=== PATIENT | female | born 1995 | race Caucasian/White ===

== ENCOUNTER → 2016-08-12 | Outpatient (REF) | payer OTHER | END | disposition home or self-care (01) | LOC: M SFHCLERA 16:07 | PROVIDERS: ATTEND Nurse Practitioner Family | DX: R30.0 Dysuria (principal) ==

== ENCOUNTER 2016-09-27 00:21 | Emergency (ER) | payer OTHER ==
[2016-09-27 01:21] LABS: MEAN CORPUSCULAR HEMOGLOBIN 29.3 pg (27.0-33.0); MEAN CORPUSCULAR HGB CONC 33.8 g/dl (32.0-36.5); MEAN CORPUSCULAR VOLUME 86.6 fl (80.0-96.0); RED CELL DISTRIBUTION WIDTH 12.2 % (11.5-14.5); WHITE BLOOD COUNT 6.6 K/mm3 (4.0-10.0)
--- NOTE | 2016-09-27 02:40 | REPUSA ---
CLINICAL HISTORY: Bleeding. TECHNIQUE: Endovaginal ultrasound of the pelvis was performed. FINDINGS: The uterus is normal in size measuring 7.2x4.2x5.6 cm. Retroverted uterus. Mean gestational sac diameter is 8.4 mm. This corresponds to an estimated gestation age of 5 weeks an d 3 days. Right ovary measures 3.7x2.2x2.2 cm. There is corpus luteum cyst of the right ovary measuring 1.5 cm. The left ovary measures 2.6x1.6. Impression: Gestational sac is noted. No pole is seen. Right ovarian corpus luteum cyst.
--- NOTE | 2016-09-27 02:46 | EDDOCDS ---
Physician Documentation [facility] Name: Radha Davis Age: 20 yrs Sex: Female : 1995 Arrival Date: 09/27/2016 Time: 00:21 Bed Family 1 Private MD: Disposition: 09/27/16 02:30 Discharged to Home/Self Care. Impression: Threatened . - Condition is Stable. - Medication Reconciliation, Local Pharmacy Hours form. - Follow up: Jaycob Ahn, OB; When: As previously arranged. - Problem is new. - Symptoms are unchanged. Historical: - Allergies: Amoxicillin (Rash); SULFA (SULFONAMIDES) (Rash); - Home Meds: 1. none - PMHx: none; - PSHx: none; - Social history: Smoking status: Patient states was never smoker of tobacco. No barriers to communication noted, The patient speaks fluent Mosotho, Speaks appropriately for age. - Family history: Not pertinent. - : The pt / caregiver states he / she is not on anticoagulants. Home medication list is obtained from the patient. - Exposure Risk Screening:: None identified. 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 4 in. (162.56 cm); 02:42 BP 133 / 73; Pulse 100; Resp 18; Temp 99.2(TE); Pulse Ox 95% on R/A; Pain 0/10; mdr 00:29 Body Mass Index 30.04 (79.38 kg, 162.56 cm) cz MDM: 00:25 Orthostatic VS ordered. cs11 00:25 CBC Ordered. EDMS 00:25 Hcg, Serum Quantitative Ordered. EDMS 00:26 Rh Only Ordered. EDMS 01:09 Ultrasound 1st Trimester Ordered. EDMS 02:27 CBC Reviewed. cs11 02:27 Rh Only Reviewed. cs11 02:27 Hcg, Serum Quantitative Reviewed. cs11 02:27 TRANSVAGINAL US Ordered. EDMS Signatures: Dispatcher [employer] EDSalvatore Dominguez, RN RN cz Chad Bo DO DO cs11 Susy Walton,RN RN cf2 MTDD
--- NOTE | 2016-09-27 02:46 | EDDOCDS ---
Nurse's Notes [facility] Name: Radha Davis Age: 20 yrs Sex: Female : 1995 Arrival Date: 09/27/2016 Time: 00:21 Bed Family 1 Private MD: Diagnosis: Threatened Presentation: 09/27 00:27 Presenting complaint: Patient states: that prior to arrival went to the bathroom and cz after voiding noticed light pink on tissue pt denies cramping. Risk factors: The patient reports no loss of conciousness prior to arrival. This patient has not had a hysterectomy. This patient has not begun menopause. Adult Sepsis Screening: The patient does not have new or worsening altered mentation. Patient's respiratory rate is less than 22. Systolic blood pressure is greater than 100. Patient has a qSOFA score of 0- Negative Sepsis Screen. Suicide/Homicide risk assessment- the patient denies having any suicidal and/or homicidal ideations and does not present with any other emotional, behavioral or mental health complaints. Status: The patient is a dependent. Transition of care: patient was not received from another setting of care. 00:27 Acuity: DARIUS Level 3 cz 00:27 Method Of Arrival: Walkin/Carried/Asstd cz Triage Assessment: 00:29 General: Appears in no apparent distress. Pain: Denies pain. HIV screening NA for this cz visit Offered previously. 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 none - PMHx: none; - PSHx: none; - Social history: Smoking status: Patient states was never smoker of tobacco. No barriers to communication noted, The patient speaks fluent Slovenian, Speaks appropriately for age. - Family history: Not pertinent. - : The pt / caregiver states he / she is not on anticoagulants. Home medication list is obtained from the patient. - Exposure Risk Screening:: None identified. Screenin:47 Screening information is obtained from the patient. Fall risk: No risks identified. cf2 Assistance ADL's: requires no assistance with activities of daily living. Abuse/DV Screen: The patient / caregiver reports he/she is: not in a situation that causes fear, pain or injury. Nutritional screening: No deficits noted. Advance Directives: Further advance directive information is declined. home support is adequate. Assessment: 00:47 General: Appears in no apparent distress, comfortable, Behavior is appropriate for age, cf2 cooperative. Pain: Denies pain. Neurological: No deficits noted. EENT: No deficits noted. Cardiovascular: No deficits noted. Respiratory: No deficits noted. GI: No deficits noted. : patient states "pink while wiping" Reports vaginal bleeding that is scant "pink" when wiping. Derm: No deficits noted. Musculoskeletal: No deficits noted. Injury Description: No known injury. 02:29 Reassessment: Patient appears in no apparent distress at this time. Patient denies pain cf2 at this time. Adult Sepsis Screening: The patient does not have new or worsening altered mentation. Patient's respiratory rate is less than 22. Systolic blood pressure is greater than 100. Patient has a qSOFA score of 0- Negative Sepsis Screen. Vital Signs: 00:29 BP 134 / 82; Pulse 119; Resp 16; Temp 98.7(O); Pulse Ox 99% on R/A; Weight 79.38 kg; cz Height 5 ft. 4 in. (162.56 cm); 02:42 BP 133 / 73; Pulse 100; Resp 18; Temp 99.2(TE); Pulse Ox 95% on R/A; Pain 0/10; mdr 00:29 Body Mass Index 30.04 (79.38 kg, 162.56 cm) cz Vitals: 00:29 Log In Time: September 27, 2016 at 00:23. cz ED Course: 00:23 Patient visited by Pura Biggs Reg. hs2 00:23 Patient moved to Waiting hs2 00:24 Patient moved to Triage 1 cz 00:28 Triage Initiated cz 00:30 Patient moved to 7 cz 00:31 Chad Bo DO is Attending Physician. cs11 00:31 Patient visited by Chad Bo DO. cs11 00:42 Susy Walton,CLAUDETTE is Primary Nurse. cf2 00:42 Patient visited by Susy Walton,CLAUDETTE. cf2 00:47 Patient visited by Susy Walton,CLAUDETTE. cf2 00:47 The patient / caregiver is instructed regarding the plan of care and ED course. Patient cf2 has correct armband on for positive identification. Placed in gown. Bed in low position. Call light in reach. Side rails up X 1. Side rails up X2. Door closed. Noise minimized. Visitors limited. Lights dimmed. Moved to private room. Verbal reassurance given. Warm blanket given. Pillow given. Head of bed elevated. Diet: Patient is NPO. 00:47 No procedures done that require assistance. cf2 01:18 Patient visited by Susy Walton RN. cf2 01:18 CBC Sent. cf2 01:18 Rh Only Sent. cf2 01:18 Hcg, Serum Quantitative Sent. cf2 01:51 Patient visited by Susy Walton RN. cf2 02:28 Patient visited by Susy Walton RN. cf2 02:29 Patient visited by Susy Walton RN. cf2 02:30 Jaycob Ahn OB is Referral Physician. cs11 02:32 Patient visited by Susy Walton RN. cf2 02:43 Patient visited by Barron Messina PCA. mdr 02:44 Patient visited by Susy Walton RN. cf2 02:44 Patient moved to Family 1 aug 02:45 No IV's were initiated during this patient's visit. cf2 Order Results: Lab Order: CBC; SPEC'M 09/27/16 01:10 Test: WHITE BLOOD COUNT; Value: 6.6; Range: 4.0-10.0; Units: K/mm3; Status: F Test: RED BLOOD COUNT; Value: 4.55; Range: 4.00-5.40; Units: M/mm3; Status: F Test: HEMOGLOBIN; Value: 13.3; Range: 12.0-16.0; Units: g/dl; Status: F Test: HEMATOCRIT; Value: 39.4; Range: 36.0-47.0; Units: %; Status: F Test: MEAN CORPUSCULAR VOLUME; Value: 86.6; Range: 80.0-96.0; Units: fl; Status: F Test: MEAN CORPUSCULAR HEMOGLOBIN; Value: 29.3; Range: 27.0-33.0; Units: pg; Status: F Test: MEAN CORPUSCULAR HGB CONC; Value: 33.8; Range: 32.0-36.5; Units: g/dl; Status: F Test: RED CELL DISTRIBUTION WIDTH; Value: 12.2; Range: 11.5-14.5; Units: %; Status: F Test: PLATELET COUNT, AUTOMATED; Value: 318; Range: 150-450; Units: k/mm3; Status: F Lab Order: Rh Only; SPEC'M 09/27/16 01:10 Test: RH; Value: POSITIVE; Status: F Lab Order: Hcg, Serum Quantitative; SPEC'M 09/27/16 01:10 Test: HCG, SERUM QUANTITATIVE; Value: 2276; Units: MIU/ML; Status: F Test Note: ; GESTATIONAL AGE APPROXIMATE HCG RANGE (MIU/ML) 0.2-1 WEEK 5-50 1-2 WEEKS 50-500 2-3 WEEKS 100-5,000 3-4 WEEKS 500-10,000 4-5 WEEKS 1,000-50,000 5-6 WEEKS 10,000-100,000 6-8 WEEKS 15,000-200,000 2-3 MONTHS 10,000-100,000 NON FEMALES LESS THAN 3.0 Patient samples may contain human heterophilic antibodies that could react with immunoassays to give falsely elevated or depressed results. This assay has been designed to minimize interference from heterophilic antibodies. Elevated hCG levels have also been associated with trophoblastic disease and nontrophoblastic neoplasms. The possibility of having these diseases should be considered before a diagnosis of is made. This test is not intended for use as a surrogate marker for aiding in the diagnosis or monitoring the treatment of cancer patients. [employer] methodology. Outcome: 02:30 Discharge ordered by Provider. cs11 02:44 Discharge Assessment: Patient awake, alert and oriented x 3. No cognitive and/or cf2 functional deficits noted. Patient verbalized understanding of disposition instructions. Patient awake and alert. Oriented to person, place and time. patient administered narcotics - no. The following High Risk Discharge criteria are identified: None. Discharged to home ambulatory. Condition: good Condition: stable. Discharge instructions given to patient, Instructed on discharge instructions, follow up and referral plans. Ultrasound Study completed. Property :Personal belongings accompany Pt. 02:45 Patient left the ED. cf2 Signatures: Kenya Decker RN RN Salvatore Munoz RN RN cz Schiff, Craig, DO DO cs11 Barron Messina, DUARTE REPEATER CHIEF mdr Pura Biggs, Reg Reg hs2 Susy Walton,RN RN cf2 MTDD
--- NOTE | 2016-09-29 03:46 | EDDOCDS ---
Physician Documentation [facility] Name: Radha Davis Age: 20 yrs Sex: Female : 1995 Arrival Date: 09/27/2016 Time: 00:21 Bed Family 1 Private MD: Disposition: 09/27/16 02:30 Discharged to Home/Self Care. Impression: Threatened . - Condition is Stable. - Medication Reconciliation, Local Pharmacy Hours form. - Follow up: Jaycob Ahn, OB; When: As previously arranged. - Problem is new. - Symptoms are unchanged. Historical: - Allergies: Amoxicillin (Rash); SULFA (SULFONAMIDES) (Rash); - Home Meds: 1. none - PMHx: none; - PSHx: none; - Social history: Smoking status: Patient states was never smoker of tobacco. No barriers to communication noted, The patient speaks fluent Serbian, Speaks appropriately for age. - Family history: Not pertinent. - : The pt / caregiver states he / she is not on anticoagulants. Home medication list is obtained from the patient. - Exposure Risk Screening:: None identified. 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 4 in. (162.56 cm); 02:42 BP 133 / 73; Pulse 100; Resp 18; Temp 99.2(TE); Pulse Ox 95% on R/A; Pain 0/10; mdr 00:29 Body Mass Index 30.04 (79.38 kg, 162.56 cm) cz MDM: 00:25 Orthostatic VS ordered. cs11 00:25 CBC Ordered. EDMS 00:25 Hcg, Serum Quantitative Ordered. EDMS 00:26 Rh Only Ordered. EDMS 01:09 Ultrasound 1st Trimester Ordered. EDMS 02:27 CBC Reviewed. cs11 02:27 Rh Only Reviewed. cs11 02:27 Hcg, Serum Quantitative Reviewed. cs11 02:27 TRANSVAGINAL US Ordered. EDMS 02:48 [facility] [place] Payment Agreement was scanned into [employer] and attached to record. hs2 09:45 Financial registration complete. mm15 20:09 T-Sheet-- Draft Copy was scanned into [employer] and attached to record. klr Signatures: Dispatcher [employer] Salvatore Chandra, RN RN Chad Roberts, DO cs11 McguireShahnaz sidhualex mm15 Pura Biggs, Reg Reg hs2 Caroline Chicas Christina, RN RN cf2 The chart was reviewed and I authenticate all verbal orders and agree with the evaluation and treatment provided.Attachments: 02:48 [facility] Payment Agreement hs2 20:09 T-Sheet-- Draft Copy klr Chart Complete MTDD
--- NOTE | 2016-09-29 03:47 | EDDOCDS ---
Nurse's Notes [facility] Name: Radha Davis Age: 20 yrs Sex: Female : 1995 Arrival Date: 09/27/2016 Time: 00:21 Bed Family 1 Private MD: Diagnosis: Threatened Presentation: 09/27 00:27 Presenting complaint: Patient states: that prior to arrival went to the bathroom and cz after voiding noticed light pink on tissue pt denies cramping. Risk factors: The patient reports no loss of conciousness prior to arrival. This patient has not had a hysterectomy. This patient has not begun menopause. Adult Sepsis Screening: The patient does not have new or worsening altered mentation. Patient's respiratory rate is less than 22. Systolic blood pressure is greater than 100. Patient has a qSOFA score of 0- Negative Sepsis Screen. Suicide/Homicide risk assessment- the patient denies having any suicidal and/or homicidal ideations and does not present with any other emotional, behavioral or mental health complaints. Status: The patient is a dependent. Transition of care: patient was not received from another setting of care. 00:27 Acuity: DARIUS Level 3 cz 00:27 Method Of Arrival: Walkin/Carried/Asstd cz Triage Assessment: 00:29 General: Appears in no apparent distress. Pain: Denies pain. HIV screening NA for this cz visit Offered previously. 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 none - PMHx: none; - PSHx: none; - Social history: Smoking status: Patient states was never smoker of tobacco. No barriers to communication noted, The patient speaks fluent Serbian, Speaks appropriately for age. - Family history: Not pertinent. - : The pt / caregiver states he / she is not on anticoagulants. Home medication list is obtained from the patient. - Exposure Risk Screening:: None identified. Screenin:47 Screening information is obtained from the patient. Fall risk: No risks identified. cf2 Assistance ADL's: requires no assistance with activities of daily living. Abuse/DV Screen: The patient / caregiver reports he/she is: not in a situation that causes fear, pain or injury. Nutritional screening: No deficits noted. Advance Directives: Further advance directive information is declined. home support is adequate. Assessment: 00:47 General: Appears in no apparent distress, comfortable, Behavior is appropriate for age, cf2 cooperative. Pain: Denies pain. Neurological: No deficits noted. EENT: No deficits noted. Cardiovascular: No deficits noted. Respiratory: No deficits noted. GI: No deficits noted. : patient states "pink while wiping" Reports vaginal bleeding that is scant "pink" when wiping. Derm: No deficits noted. Musculoskeletal: No deficits noted. Injury Description: No known injury. 02:29 Reassessment: Patient appears in no apparent distress at this time. Patient denies pain cf2 at this time. Adult Sepsis Screening: The patient does not have new or worsening altered mentation. Patient's respiratory rate is less than 22. Systolic blood pressure is greater than 100. Patient has a qSOFA score of 0- Negative Sepsis Screen. Vital Signs: 00:29 BP 134 / 82; Pulse 119; Resp 16; Temp 98.7(O); Pulse Ox 99% on R/A; Weight 79.38 kg; cz Height 5 ft. 4 in. (162.56 cm); 02:42 BP 133 / 73; Pulse 100; Resp 18; Temp 99.2(TE); Pulse Ox 95% on R/A; Pain 0/10; mdr 00:29 Body Mass Index 30.04 (79.38 kg, 162.56 cm) cz Vitals: 00:29 Log In Time: September 27, 2016 at 00:23. cz ED Course: 00:23 Patient visited by Pura Biggs Reg. hs2 00:23 Patient moved to Waiting hs2 00:24 Patient moved to Triage 1 cz 00:28 Triage Initiated cz 00:30 Patient moved to 7 cz 00:31 Chad Bo DO is Attending Physician. cs11 00:31 Patient visited by Chad Bo DO. cs11 00:42 Susy Walton,CLAUDETTE is Primary Nurse. cf2 00:42 Patient visited by Susy Walton,CLAUDETTE. cf2 00:47 Patient visited by Susy Walton,CLAUDETTE. cf2 00:47 The patient / caregiver is instructed regarding the plan of care and ED course. Patient cf2 has correct armband on for positive identification. Placed in gown. Bed in low position. Call light in reach. Side rails up X 1. Side rails up X2. Door closed. Noise minimized. Visitors limited. Lights dimmed. Moved to private room. Verbal reassurance given. Warm blanket given. Pillow given. Head of bed elevated. Diet: Patient is NPO. 00:47 No procedures done that require assistance. cf2 01:18 Patient visited by Susy Walton RN. cf2 01:18 CBC Sent. cf2 01:18 Rh Only Sent. cf2 01:18 Hcg, Serum Quantitative Sent. cf2 01:51 Patient visited by Susy Walton RN. cf2 02:28 Patient visited by Susy Walton RN. cf2 02:29 Patient visited by Susy Walton RN. cf2 02:30 Jaycob Ahn, OB is Referral Physician. cs11 02:32 Patient visited by Susy Walton RN. cf2 02:43 Patient visited by Barron Messina PCA. mdr 02:44 Patient visited by Susy Walton,CLAUDETTE. cf2 02:44 Patient moved to Family 1 aug 02:45 No IV's were initiated during this patient's visit. cf2 02:48 [facility] [place] Payment Agreement was scanned into [employer] and attached to record. hs2 03:19 Ultrasound 1st Trimester Returned. EDMS 20:09 T-Sheet-- Draft Copy was scanned into [employer] and attached to record. klr Order Results: Lab Order: CBC; SPEC'M 09/27/16 01:10 Test: WHITE BLOOD COUNT; Value: 6.6; Range: 4.0-10.0; Units: K/mm3; Status: F Test: RED BLOOD COUNT; Value: 4.55; Range: 4.00-5.40; Units: M/mm3; Status: F Test: HEMOGLOBIN; Value: 13.3; Range: 12.0-16.0; Units: g/dl; Status: F Test: HEMATOCRIT; Value: 39.4; Range: 36.0-47.0; Units: %; Status: F Test: MEAN CORPUSCULAR VOLUME; Value: 86.6; Range: 80.0-96.0; Units: fl; Status: F Test: MEAN CORPUSCULAR HEMOGLOBIN; Value: 29.3; Range: 27.0-33.0; Units: pg; Status: F Test: MEAN CORPUSCULAR HGB CONC; Value: 33.8; Range: 32.0-36.5; Units: g/dl; Status: F Test: RED CELL DISTRIBUTION WIDTH; Value: 12.2; Range: 11.5-14.5; Units: %; Status: F Test: PLATELET COUNT, AUTOMATED; Value: 318; Range: 150-450; Units: k/mm3; Status: F Lab Order: Rh Only; SPEC'09/27/16 01:10 Test: RH; Value: POSITIVE; Status: F Lab Order: Hcg, Serum Quantitative; SPEC09/27/16 01:10 Test: HCG, SERUM QUANTITATIVE; Value: 2276; Units: MIU/ML; Status: F Test Note: ; GESTATIONAL AGE APPROXIMATE HCG RANGE (MIU/ML) 0.2-1 WEEK 5-50 1-2 WEEKS 50-500 2-3 WEEKS 100-5,000 3-4 WEEKS 500-10,000 4-5 WEEKS 1,000-50,000 5-6 WEEKS 10,000-100,000 6-8 WEEKS 15,000-200,000 2-3 MONTHS 10,000-100,000 NON FEMALES LESS THAN 3.0 Patient samples may contain human heterophilic antibodies that could react with immunoassays to give falsely elevated or depressed results. This assay has been designed to minimize interference from heterophilic antibodies. Elevated hCG levels have also been associated with trophoblastic disease and nontrophoblastic neoplasms. The possibility of having these diseases should be considered before a diagnosis of is made. This test is not intended for use as a surrogate marker for aiding in the diagnosis or monitoring the treatment of cancer patients. Siemens SMCpros methodology. Radiology Order: Ultrasound 1st Trimester Test: Ultrasound 1st Trimester REASON FOR EXAMINATION: Bleeding; ; CLINICAL HISTORY: Bleeding.; TECHNIQUE: Endovaginal ultrasound of the pelvis was performed.; FINDINGS:; The uterus is normal in size measuring 7.2x4.2x5.6 cm.; Retroverted uterus.; Mean gestational sac diameter is 8.4 mm. This corresponds to an estimated gestation age of 5 weeks an; d 3 days.; Right ovary measures 3.7x2.2x2.2 cm. There is corpus luteum cyst of the right ovary measuring 1.5 cm.; ; The left ovary measures 2.6x1.6.; Impression:; Gestational sac is noted.; No pole is seen.; Right ovarian corpus luteum cyst.; ; ; Outcome: 02:30 Discharge ordered by Provider. cs11 02:44 Discharge Assessment: Patient awake, alert and oriented x 3. No cognitive and/or cf2 functional deficits noted. Patient verbalized understanding of disposition instructions. Patient awake and alert. Oriented to person, place and time. patient administered narcotics - no. The following High Risk Discharge criteria are identified: None. Discharged to home ambulatory. Condition: good Condition: stable. Discharge instructions given to patient, Instructed on discharge instructions, follow up and referral plans. Ultrasound Study completed. Property :Personal belongings accompany Pt. 02:45 Patient left the ED. cf2 Signatures: Dispatcher Med[employer] EDMS Kenya Decker RN Salvatore Denise, RN Chad Tam, DO cs11 Barron Messina, DUARTE AUTOMOBILE LEASING SUPERVISOR Pura Glaser, Reg Reg hs2 Caroline Chicas Christina,RN RN cf2 Chart Complete MTDD
--- NOTE | 2016-09-29 03:47 | EDDOCDS ---
Physician Documentation [facility] Name: Radha Davis Age: 20 yrs Sex: Female : 1995 Arrival Date: 09/27/2016 Time: 00:21 Bed Family 1 Private MD: Disposition: 09/27/16 02:30 Discharged to Home/Self Care. Impression: Threatened . - Condition is Stable. - Medication Reconciliation, Local Pharmacy Hours form. - Follow up: Jaycob Ahn, OB; When: As previously arranged. - Problem is new. - Symptoms are unchanged. Historical: - Allergies: Amoxicillin (Rash); SULFA (SULFONAMIDES) (Rash); - Home Meds: 1. none - PMHx: none; - PSHx: none; - Social history: Smoking status: Patient states was never smoker of tobacco. No barriers to communication noted, The patient speaks fluent Sammarinese, Speaks appropriately for age. - Family history: Not pertinent. - : The pt / caregiver states he / she is not on anticoagulants. Home medication list is obtained from the patient. - Exposure Risk Screening:: None identified. 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 4 in. (162.56 cm); 02:42 BP 133 / 73; Pulse 100; Resp 18; Temp 99.2(TE); Pulse Ox 95% on R/A; Pain 0/10; mdr 00:29 Body Mass Index 30.04 (79.38 kg, 162.56 cm) cz MDM: 00:25 Orthostatic VS ordered. cs11 00:25 CBC Ordered. EDMS 00:25 Hcg, Serum Quantitative Ordered. EDMS 00:26 Rh Only Ordered. EDMS 01:09 Ultrasound 1st Trimester Ordered. EDMS 02:27 CBC Reviewed. cs11 02:27 Rh Only Reviewed. cs11 02:27 Hcg, Serum Quantitative Reviewed. cs11 02:27 TRANSVAGINAL US Ordered. EDMS 02:48 [facility] [place] was scanned into [employer] and attached to record. hs2 09:45 Financial registration complete. mm15 20:09 T-Sheet-- Draft Copy was scanned into [employer] and attached to record. klr Signatures: Dispatcher [employer] Salvatore Chandra, RN RN Chad Roberts, DO cs11 McguireShahnaz sidhualex mm15 Pura Biggs, Reg Reg hs2 Caroline Chicas Christina, RN RN cf2 The chart was reviewed and I authenticate all verbal orders and agree with the evaluation and treatment provided.Attachments: 02:48 [facility] Payment Agreement hs2 20:09 T-Sheet-- Draft Copy klr Chart Complete MTDD
== END 2016-09-27 02:45 | disposition home or self-care (01) ==
LOC: M ED 00:21
DX: O20.0 Threatened abortion (principal); Z3A.01 Less than 8 weeks gestation of pregnancy; Z88.0 Allergy status to penicillin; Z88.2 Allergy status to sulfonamides

== ENCOUNTER 2016-09-28 19:00 | Emergency (ER) | payer OTHER ==
[2016-09-28 19:59] LABS: BASO % 0.3 % (0.0-1.0); EOS # 0.2 K/mm3 (0.0-0.50); EOS % 1.9 % (0.0-3.0); LARGE UNSTAINED CELL # 0.1 K/mm3 (0.0-0.4); LARGE UNSTAINED CELL % 1.3 % (0.0-4.0); LYMPH # 2.4 K/mm3 (1.5-6.5); LYMPH % 24.5 % (24.0-44.0); MEAN CORPUSCULAR HEMOGLOBIN 29.7 pg (27.0-33.0); MEAN CORPUSCULAR VOLUME 87.3 fl (80.0-96.0); MONO # 0.5 K/mm3 (0.0-0.8); MONO % 5.7 % (0.0-5.0); NEUTROPHILS # 6.3 K/mm3 (1.8-7.7); NEUTROPHILS % 66.4 % (36.0-66.0); PLATELET COUNT, AUTOMATED 322 k/mm3 (150-450); RED CELL DISTRIBUTION WIDTH 12.4 % (11.5-14.5); WHITE BLOOD COUNT 9.5 K/mm3 (4.0-10.0)
[2016-09-28 20:31] LABS: ANION GAP 7 MEQ/L (8-16); BLOOD UREA NITROGEN 6 MG/DL (7-18); CALCIUM LEVEL 8.6 MG/DL (8.5-10.1); CARBON DIOXIDE LEVEL 28 MEQ/L (21-32); CHLORIDE LEVEL 106 MEQ/L (98-107); CREATININE FOR GFR 0.66 MG/DL (0.55-1.02); GLOMERULAR FILTRATION RATE > 60.0 (>60); GLUCOSE, FASTING 82 MG/DL (70-105); HCG, SERUM QUANTITATIVE 1899 MIU/ML; SODIUM LEVEL 141 MEQ/L (136-145)
--- NOTE | 2016-09-28 22:24 | EDDOCDS ---
Nurse's Notes [facility] Name: Radha Davis Age: 20 yrs Sex: Female : 1995 Arrival Date: 09/28/2016 Time: 19:00 Bed I4 / M4 Private MD: Haresh Elizabeth Diagnosis: Spontaneous Presentation: 09/28 19:04 Presenting complaint: Patient states: Was seen here on for vaginal bleeding mcp and 4-5 weeks . Today bleeding with clots increased with cramping. Risk factors: The patient reports no loss of conciousness prior to arrival. This patient has not had a hysterectomy. This patient has not begun menopause. Adult Sepsis Screening: The patient does not have new or worsening altered mentation. Patient's respiratory rate is less than 22. Systolic blood pressure is greater than 100. Patient has a qSOFA score of 0- Negative Sepsis Screen. Suicide/Homicide risk assessment- the patient denies having any suicidal and/or homicidal ideations and does not present with any other emotional, behavioral or mental health complaints. Status: The patient is a dependent. Transition of care: patient was not received from another setting of care. 19:04 Acuity: DARIUS Level 3 mcp 19:04 Method Of Arrival: Walkin/Carried/Asstd [facility] Triage Assessment: 19:06 General: Appears in no apparent distress, Behavior is cooperative. Pain: Location: mcp right lower quadrant and left lower quadrant Pain currently is 2 out of 10 on a pain scale. Quality of pain is described as crampy. HIV screening NA for this visit Offered previously. Neurological: No deficits noted. Respiratory: No deficits noted. : Reports vaginal bleeding that is with clots moderate flow. Derm: Skin is pink, warm & dry. 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 none - PMHx: none; - PSHx: none; - Social history: Smoking status: Patient states was never smoker of tobacco. No barriers to communication noted, The patient speaks fluent Turkmen. - Family history: Not pertinent. - : The pt / caregiver states he / she is not on anticoagulants. Home medication list is obtained from the patient. - Exposure Risk Screening:: None identified. Screenin:40 Screening information is obtained from the patient. Fall risk: No risks identified. ko2 Assistance ADL's: requires no assistance with activities of daily living. Abuse/DV Screen: The patient / caregiver reports he/she is: not in a situation that causes fear, pain or injury. Nutritional screening: No deficits noted. Advance Directives: Currently, there is no health care proxy. There is no active DNR order. There is no living will. There is no Power of Show Card Letterer. home support is adequate. Assessment: 19:39 General: Appears in no apparent distress, Behavior is appropriate for age, cooperative. ko2 Pain: Location: abdomen Pain currently is 2 out of 10 on a pain scale. Neurological: Level of Consciousness is awake, alert, Oriented to person, place, time. Respiratory: Airway is patent Respiratory effort is even, unlabored, Respiratory pattern is regular, symmetrical. : Urine is blood tinged. Derm: Skin is normal. Musculoskeletal: Range of motion intact in all extremities. 21:08 General: Appears in no apparent distress, Behavior is appropriate for age, cooperative. ko2 Pain: Location: abdomen Pain currently is 3 out of 10 on a pain scale. Neurological: Level of Consciousness is awake, alert, Oriented to person, place, time. Respiratory: Airway is patent Respiratory effort is even, unlabored, Respiratory pattern is regular, symmetrical. Derm: Skin is normal. Musculoskeletal: Range of motion intact in all extremities. 22:20 General: Appears in no apparent distress, Behavior is appropriate for age, cooperative. ko2 Pain: Location: abdomen Pain currently is 3 out of 10 on a pain scale. Neurological: Level of Consciousness is awake, alert. Respiratory: Airway is patent Respiratory effort is even, unlabored, Respiratory pattern is regular, symmetrical. Derm: Skin is normal. Vital Signs: 19:01 BP 127 / 75; Pulse 93; Resp 19; Temp 98.4(O); Pulse Ox 98% on R/A; Weight 79.38 kg (R); lr2 Height 5 ft. 4 in. (162.56 cm) (R); Pain 2/10; 22:11 BP 104 / 64; Pulse 18; Resp 18; Temp 99.9; Pulse Ox 99% ; Pain 3/10; ajs 19:01 Body Mass Index 30.04 (79.38 kg, 162.56 cm) lr2 Vitals: 19:03 Log In Time: September 28, 2016 at 19:00. RN notified that patient meets Red Flag lr2 criteria. ED Course: 19:00 Patient visited by Jenny Pritchett. lr2 19:00 Patient moved to Waiting lr2 19:03 [place] [facility] [place] Phys[place]. lr2 19:03 Patient moved to Pre RCE lr2 19:06 Triage Initiated [facility] 19:07 Patient visited by Luisa Villa RN. [facility] 19:07 [facility] ck[facility] 19:07 Chad Bo DO is Attending Physician. ck7 19:07 Patient visited by Juan Diego Denise RPA-C. ck7 19:07 Patient moved to Triage 3 [facility] 19:22 Patient moved to I4 / M4 kmg1 19:38 Urine Culture Sent. ko2 19:38 UA Sent. ko2 19:39 Type & Screen Sent. ko2 19:39 Hcg, Serum Quantitative Sent. ko2 19:39 MED Profile Sent. ko2 19:39 CBC with Diff Sent. ko2 19:40 Patient visited by Modesta Benítez RN. ko2 19:40 The patient / caregiver is instructed regarding the plan of care and ED course. ko2 19:40 Inserted saline lock: 20 gauge in right antecubital area and blood collected. The ko2 patient tolerated the procedure well. 19:49 [place] [place] was [place] into [employer] and attached to record. ks16 20:39 Patient visited by Juan Diego Denise RPA-C. ck7 21:08 Patient visited by Modesta Benítez RN. ko2 21:09 Patient visited by Modesta Benítez RN. ko2 21:56 Patient visited by Juan Diego Denise RPA-C. ck7 22:03 Jaycob Ahn OB is Referral Physician. ck7 22:11 Patient visited by Brenda Joaquin. ajs 22:21 Discontinued lock intact, bleeding controlled, pressure dressing applied, No ko2 redness/swelling at site. No procedures done that require assistance. Administered Medications: 19:40 Drug: NS 0.9% 1000 ml Route: IV; Rate: bolus; Site: right antecubital; [facility] 22:23 Follow up: IV Status: Completed infusion; IV Intake: 1000ml ko2 Intake: 22:23 IV: 1000.00ml; Total: 1000.00ml. ko2 Order Results: Lab Order: CBC with Diff; SPEC'M 09/28/16 19:35 Test: WHITE BLOOD COUNT; Value: 9.5; Range: 4.0-10.0; Units: K/mm3; Status: F Test: RED BLOOD COUNT; Value: 4.46; Range: 4.00-5.40; Units: M/mm3; Status: F Test: HEMOGLOBIN; Value: 13.2; Range: 12.0-16.0; Units: g/dl; Status: F Test: HEMATOCRIT; Value: 38.9; Range: 36.0-47.0; Units: %; Status: F Test: MEAN CORPUSCULAR VOLUME; Value: 87.3; Range: 80.0-96.0; Units: fl; Status: F Test: MEAN CORPUSCULAR HEMOGLOBIN; Value: 29.7; Range: 27.0-33.0; Units: pg; Status: F Test: MEAN CORPUSCULAR HGB CONC; Value: 34.0; Range: 32.0-36.5; Units: g/dl; Status: F Test: RED CELL DISTRIBUTION WIDTH; Value: 12.4; Range: 11.5-14.5; Units: %; Status: F Test: PLATELET COUNT, AUTOMATED; Value: 322; Range: 150-450; Units: k/mm3; Status: F Test: NEUTROPHILS %; Value: 66.4; Range: 36.0-66.0; Abnormal: Above high normal; Units: %; Status: F Test: LYMPH %; Value: 24.5; Range: 24.0-44.0; Units: %; Status: F Test: MONO %; Value: 5.7; Range: 0.0-5.0; Abnormal: Above high normal; Units: %; Status: F Test: EOS %; Value: 1.9; Range: 0.0-3.0; Units: %; Status: F Test: BASO %; Value: 0.3; Range: 0.0-1.0; Units: %; Status: F Test: LARGE UNSTAINED CELL %; Value: 1.3; Range: 0.0-4.0; Units: %; Status: F Test: NEUTROPHILS #; Value: 6.3; Range: 1.8-7.7; Units: K/mm3; Status: F Test: LYMPH #; Value: 2.4; Range: 1.5-6.5; Units: K/mm3; Status: F Test: MONO #; Value: 0.5; Range: 0.0-0.8; Units: K/mm3; Status: F Test: EOS #; Value: 0.2; Range: 0.0-0.50; Units: K/mm3; Status: F Test: BASO #; Value: 0.0; Range: 0.0-0.2; Units: K/mm3; Status: F Test: LARGE UNSTAINED CELL #; Value: 0.1; Range: 0.0-0.4; Units: K/mm3; Status: F Lab Order: [facility] Profile; [facility]'M 09/28/16 19:35 Test: GLUCOSE, FASTING; Value: 82; Range: 70-105; Units: MG/DL; Status: F Test: BLOOD UREA NITROGEN; Value: 6; Range: 7-18; Abnormal: Below low normal; Units: MG/DL; Status: F Test: CREATININE FOR GFR; Value: 0.66; Range: 0.55-1.02; Units: MG/DL; Status: F Test: GLOMERULAR FILTRATION RATE; Value: > 60.0; Range: >60; Status: F Test: SODIUM LEVEL; Value: 141; Range: 136-145; Units: MEQ/L; Status: F Test: POTASSIUM SERUM; Value: 4.0; Range: 3.5-5.1; Units: MEQ/L; Status: F Test: CHLORIDE LEVEL; Value: 106; Range: 98-107; Units: MEQ/L; Status: F Test: CARBON DIOXIDE LEVEL; Value: 28; Range: 21-32; Units: MEQ/L; Status: F Test: ANION GAP; Value: 7; Range: 8-16; Abnormal: Below low normal; Units: MEQ/L; Status: F Test: CALCIUM LEVEL; Value: 8.6; Range: 8.5-10.1; Units: MG/DL; Status: F Test Note: ; Units are mL/min/1.73 m2 Chronic Kidney Disease Staging per NKF: Stage I & II GFR >=60 Normal to Mildly Decreased Stage III GFR 30-59 Moderately Decreased Stage IV GFR 15-29 Severely Decreased Stage V GFR <15 Very Little GFR Left ESRD GFR <15 on IRRIGATIONIST DESIGNER Lab Order: Hcg, Serum Quantitative; SPEC'M 09/28/16 19:35 Test: HCG, SERUM QUANTITATIVE; Value: 1899; Units: MIU/ML; Status: F Test Note: ; GESTATIONAL AGE APPROXIMATE HCG RANGE (MIU/ML) 0.2-1 WEEK 5-50 1-2 WEEKS 50-500 2-3 WEEKS 100-5,000 3-4 WEEKS 500-10,000 4-5 WEEKS 1,000-50,000 5-6 WEEKS 10,000-100,000 6-8 WEEKS 15,000-200,000 2-3 MONTHS 10,000-100,000 NON FEMALES LESS THAN 3.0 Patient samples may contain human heterophilic antibodies that could react with immunoassays to give falsely elevated or depressed results. This assay has been designed to minimize interference from heterophilic antibodies. Elevated hCG levels have also been associated with trophoblastic disease and nontrophoblastic neoplasms. The possibility of having these diseases should be considered before a diagnosis of is made. This test is not intended for use as a surrogate marker for aiding in the diagnosis or monitoring the treatment of cancer patients. [employer] methodology. Lab Order: Type & Screen; [facility]09/28/16 19:35 Test: BLOOD TYPE; Value: O POS; Status: F Test: AB SCREEN (INDIRECT [place])VIS; Value: NEGATIVE; Status: F Lab Order: UA; SPEC'M 09/28/16 19:35 Test: APPEARANCE, URINE; Value: CLOUDY; Range: CLEAR; Abnormal: Above high normal; Status: F Test: COLOR, URINE; Value: YELLOW; Range: YELLOW; Status: F Test: PH,URINE; Value: 5.0; Range: 5.0-9.0; Units: UNITS; Status: F Test: SPECIFIC GRAVITY URINE AUTO; Value: 1.025; Range: 1.002-1.035; Status: F Test: PROTEIN, URINE AUTO; Value: 2+; Range: NEGATIVE; Abnormal: Above high normal; Units: mg/dL; Status: F Test: GLUCOSE, URINE (UA) AUTO; Value: NEGATIVE; Range: NEGATIVE; Units: mg/dL; Status: F Test: KETONE, URINE AUTO; Value: NEGATIVE; Range: NEGATIVE; Units: mg/dL; Status: F Test: UROBILINOGEN, URINE AUTO; Value: 0.2; Range: 0.0-2.0; Units: mg/dL; Status: F Test: BILIRUBIN, URINE AUTO; Value: NEGATIVE; Range: NEGATIVE; Status: F Test: NITRITE, URINE AUTO; Value: NEGATIVE; Range: NEGATIVE; Status: F Test: LEUKOCYTE ESTERASE, URINE AUTO; Value: 1+; Range: NEGATIVE; Abnormal: Above high normal; Status: F Test: BLOOD, URINE BLOOD; Value: 3+; Range: NEGATIVE; Abnormal: Above high normal; Status: F Test: WBC, URINE AUTO; Value: 26; Range: 0-3; Abnormal: Above high normal; Units: /HPF; Status: F Test: RBC, URINE AUTO; Value: TNTC; Range: 0-3; Abnormal: Above high normal; Units: /HPF; Status: F Test: BACTERIA, URINE AUTO; Value: 1+; Range: NEGATIVE; Abnormal: Above high normal; Status: F Test: SQUAMOUS EPITHELIAL CELL UR AU; Value: 5; Range: 0-6; Units: /HPF; Status: F Test: TRANSITIONAL EPITHELIAL AUTO; Value: <1; Range: NONE; Units: /HPF; Status: F Test: MUCUS, URINE; Value: MODERATE; Range: NEGATIVE; Status: F Test: HYALINE CAST, URINE AUTO; Value: 0; Range: 0-1; Units: /LPF; Status: F Outcome: 22:04 Discharge ordered by Provider. ck7 22:21 Discharge Assessment: Patient awake, alert and oriented x 3. No cognitive and/or ko2 functional deficits noted. Patient verbalized understanding of disposition instructions. patient administered narcotics - no. The following High Risk Discharge criteria are identified: None. Discharged to home ambulatory. Condition: stable. Discharge instructions given to patient, Instructed on discharge instructions, follow up and referral plans. medication usage, Demonstrated understanding of instructions, Pt was receptive of discharge instructions/ teaching. Ultrasound Study completed. Property sent home with patient. 22:23 Patient left the ED. ko2 Signatures: Belle Weathers, RN RN kmg1 Luisa Villa RN RN Brenda Abdul JaneRN RN chary Juan Diego Denise, RPA-C [id number] Modesta Benítez RN RN janette2 Megha Simmons, Reg Reg ks16 Jenny Pritchett lr2 MTDD
--- NOTE | 2016-09-28 22:24 | EDDOCDS ---
Physician Documentation [facility] Name: Radha Davis Age: 20 yrs Sex: Female : 1995 Arrival Date: 09/28/2016 Time: 19:00 Bed I4 / M4 Private MD: [place] [facility] [place]position: 09/28/16 22:04 Discharged to Home/Self Care. Impression: Spontaneous . - Condition is Stable. - Discharge Instructions: Miscarriage. - Medication Reconciliation, Local Pharmacy Hours form. - Follow up: Jaycob Ahn, OB; When: 1 - 2 days; Reason: Recheck today's complaints, Continuance of care. - Problem is new. - Symptoms are unchanged. - Notes: FOLLOW UP WITH JAYCOB AHN OB ON FRIDAY, RETURN TO THE ER IF THE BLEEDING OR CRAMPING WORSENS, YOU FEEL DIZZY OR SHORT OF BREATH Historical: - Allergies: Amoxicillin (Rash); SULFA (SULFONAMIDES) (Rash); - Home Meds: 1. none - PMHx: none; - PSHx: none; - Social history: Smoking status: Patient states was never smoker of tobacco. No barriers to communication noted, The patient speaks fluent Czech. - Family history: Not pertinent. - : The pt / caregiver states he / she is not on anticoagulants. Home medication list is obtained from the patient. - Exposure Risk Screening:: None identified. 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 4 in. (162.56 cm) (R); Pain 2/10; 22:11 BP 104 / 64; Pulse 18; Resp 18; Temp 99.9; Pulse Ox 99% ; Pain 3/10; ajs 19:01 Body Mass Index 30.04 (79.38 kg, 162.56 cm) lr2 MDM: 19:20 IV Saline Lock ordered. ck7 19:20 NS 0.9% 1000 ml IV at bolus once ordered. ck7 19:20 Set up pelvic ordered. ck7 19:21 US 1st trimester Ordered. EDMS 19:21 CBC with Diff Ordered. EDMS 19:21 MED Profile Ordered. EDMS 19:21 Hcg, Serum Quantitative Ordered. EDMS 19:21 Type & Screen Ordered. EDMS 19:21 UA Ordered. EDMS 19:21 Urine Culture Ordered. EDMS 19:44 Financial registration complete. ks16 19:49 [facility] Payment Agreement was scanned into [employer] and attached to record. ks16 20:01 TRANSVAGINAL US Ordered. EDMS 20:39 CBC with Diff Reviewed. ck7 20:39 MED Profile Reviewed. ck7 20:39 UA Reviewed. ck7 20:39 Hcg, Serum Quantitative Reviewed. ck7 20:39 Type & Screen Reviewed. ck7 Administered Medications: 19:40 Drug: NS 0.9% 1000 ml Route: IV; Rate: bolus; Site: right antecubital; [facility] 22:23 Follow up: IV Status: Completed infusion; IV Intake: 1000ml ko2 Signatures: Dispatcher [employer] Luisa Renee RN RN mcp Kwaczala, Christopher, RPA-C RPA-[id number] Modesta Benítez RN RN ko2 Megha Simmons, Reg Reg ks16 Brittney Norwood RN [facility] The chart was reviewed and I authenticate all verbal orders and agree with the evaluation and treatment provided.Attachments: 19:49 [facility] Payment Agreement ks16 MTDD
--- NOTE | 2016-09-29 07:41 | REP ---
Clinical: Early with vaginal bleeding. Comparison: 09/27/2016. Findings: Retroflexed uterus measures 9.6 x 4.8 x 4.7 cm. An empty and irregularly shaped gestational sac is now identified within the lower uterine segment with mean sac diameter of 6.2 mm corresponding to 5 weeks 3 days gestational age. No yolk sac or pole identified. Maternal ovaries are normal in appearance with 1.5 cm corpus luteum in the right ovary. No significant pelvic fluid or adnexal mass lesion. Impression: Empty gestational sac appears to have migrated into the lower uterine segment when compared to prior examination. Findings are most suggestive of spontaneous in progress. However, differential diagnosis would include early . Correlation with serial HCG levels recommended. Signed by Mu Nina MD 09/29/2016 07:32 A
--- NOTE | 2016-09-30 23:24 | EDDOCDS ---
Nurse's Notes [facility] Name: Radha Davis Age: 20 yrs Sex: Female : 1995 Arrival Date: 09/28/2016 Time: 19:00 Bed I4 / M4 Private MD: Haresh Elizabeth Diagnosis: Spontaneous Presentation: 09/28 19:04 Presenting complaint: Patient states: Was seen here on for vaginal bleeding mcp and 4-5 weeks . Today bleeding with clots increased with cramping. Risk factors: The patient reports no loss of conciousness prior to arrival. This patient has not had a hysterectomy. This patient has not begun menopause. Adult Sepsis Screening: The patient does not have new or worsening altered mentation. Patient's respiratory rate is less than 22. Systolic blood pressure is greater than 100. Patient has a qSOFA score of 0- Negative Sepsis Screen. Suicide/Homicide risk assessment- the patient denies having any suicidal and/or homicidal ideations and does not present with any other emotional, behavioral or mental health complaints. Status: The patient is a dependent. Transition of care: patient was not received from another setting of care. 19:04 Acuity: DARIUS Level 3 mcp 19:04 Method Of Arrival: Walkin/Carried/Asstd [facility] Triage Assessment: 19:06 General: Appears in no apparent distress, Behavior is cooperative. Pain: Location: mcp right lower quadrant and left lower quadrant Pain currently is 2 out of 10 on a pain scale. Quality of pain is described as crampy. HIV screening NA for this visit Offered previously. Neurological: No deficits noted. Respiratory: No deficits noted. : Reports vaginal bleeding that is with clots moderate flow. Derm: Skin is pink, warm & dry. 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 none - PMHx: none; - PSHx: none; - Social history: Smoking status: Patient states was never smoker of tobacco. No barriers to communication noted, The patient speaks fluent Kinyarwanda. - Family history: Not pertinent. - : The pt / caregiver states he / she is not on anticoagulants. Home medication list is obtained from the patient. - Exposure Risk Screening:: None identified. Screenin:40 Screening information is obtained from the patient. Fall risk: No risks identified. ko2 Assistance ADL's: requires no assistance with activities of daily living. Abuse/DV Screen: The patient / caregiver reports he/she is: not in a situation that causes fear, pain or injury. Nutritional screening: No deficits noted. Advance Directives: Currently, there is no health care proxy. There is no active DNR order. There is no living will. There is no Power of Nurse Sitter. home support is adequate. Assessment: 19:39 General: Appears in no apparent distress, Behavior is appropriate for age, cooperative. ko2 Pain: Location: abdomen Pain currently is 2 out of 10 on a pain scale. Neurological: Level of Consciousness is awake, alert, Oriented to person, place, time. Respiratory: Airway is patent Respiratory effort is even, unlabored, Respiratory pattern is regular, symmetrical. : Urine is blood tinged. Derm: Skin is normal. Musculoskeletal: Range of motion intact in all extremities. 21:08 General: Appears in no apparent distress, Behavior is appropriate for age, cooperative. ko2 Pain: Location: abdomen Pain currently is 3 out of 10 on a pain scale. Neurological: Level of Consciousness is awake, alert, Oriented to person, place, time. Respiratory: Airway is patent Respiratory effort is even, unlabored, Respiratory pattern is regular, symmetrical. Derm: Skin is normal. Musculoskeletal: Range of motion intact in all extremities. 22:20 General: Appears in no apparent distress, Behavior is appropriate for age, cooperative. ko2 Pain: Location: abdomen Pain currently is 3 out of 10 on a pain scale. Neurological: Level of Consciousness is awake, alert. Respiratory: Airway is patent Respiratory effort is even, unlabored, Respiratory pattern is regular, symmetrical. Derm: Skin is normal. Vital Signs: 19:01 BP 127 / 75; Pulse 93; Resp 19; Temp 98.4(O); Pulse Ox 98% on R/A; Weight 79.38 kg (R); lr2 Height 5 ft. 4 in. (162.56 cm) (R); Pain 2/10; 22:11 BP 104 / 64; Pulse 18; Resp 18; Temp 99.9; Pulse Ox 99% ; Pain 3/10; ajs 19:01 Body Mass Index 30.04 (79.38 kg, 162.56 cm) lr2 Vitals: 19:03 Log In Time: September 28, 2016 at 19:00. RN notified that patient meets Red Flag lr2 criteria. ED Course: 19:00 Patient visited by Jenny Pritchett. lr2 19:00 Patient moved to Waiting lr2 19:03 Haresh [facility] is Private Physician. lr2 19:03 Patient moved to Pre RCE lr2 19:[address] [facility] 19:07 Patient visited by Luisa Villa, CLAUDETTE. [facility] 19:07 Juan Diego Denise RPA-C is PHCP. ck7 19:07 Chad Bo DO is Attending Physician. ck7 19:07 Patient visited by Juan Diego Denise RPA-C. ck7 19:07 Patient moved to Triage 3 [facility] 19:22 Patient moved to I4 / M4 kmg1 19:38 Urine Culture Sent. ko2 19:38 UA Sent. ko2 19:39 Type & Screen Sent. ko2 19:39 Hcg, Serum Quantitative Sent. ko2 19:39 MED Profile Sent. ko2 19:39 CBC with Diff Sent. ko2 19:40 Patient visited by Modesta Benítez RN. ko2 19:40 The patient / caregiver is instructed regarding the plan of care and ED course. ko2 19:40 Inserted saline lock: 20 gauge in right antecubital area and blood collected. The ko2 patient tolerated the procedure well. 19:49 [facility] [place] Agreement was scanned into Smarty Ring and attached to record. ks16 20:39 Patient visited by Juan Diego Denise RPA-C. ck7 21:08 Patient visited by Modesta Benítez,CLAUDETTE. ko2 21:09 Patient visited by Modesta Benítez RN. ko2 21:56 Patient visited by Juan Diego Denise RPA-C. ck7 22:03 Jaycob Ahn OB is Referral Physician. ck7 22:11 Patient visited by Brenda Joaquin. ajs 22:21 Discontinued lock intact, bleeding controlled, pressure dressing applied, No ko2 redness/swelling at site. No procedures done that require assistance. 09/29 07:59 US 1st trimester Returned. EDMS 08:01 T-Sheet-- Draft Copy was scanned into Smarty Ring and attached to record. [facility] Administered Medications: 09/28 19:40 Drug: NS 0.9% 1000 ml Route: IV; Rate: bolus; Site: right antecubital; [facility] 22:23 Follow up: IV Status: Completed infusion; IV Intake: 1000ml ko2 Intake: 22:23 IV: 1000.00ml; Total: 1000.00ml. ko2 Order Results: Lab Order: CBC with Diff; SPEC'M 09/28/16 19:35 Test: WHITE BLOOD COUNT; Value: 9.5; Range: 4.0-10.0; Units: K/mm3; Status: F Test: RED BLOOD COUNT; Value: 4.46; Range: 4.00-5.40; Units: M/mm3; Status: F Test: HEMOGLOBIN; Value: 13.2; Range: 12.0-16.0; Units: g/dl; Status: F Test: HEMATOCRIT; Value: 38.9; Range: 36.0-47.0; Units: %; Status: F Test: MEAN CORPUSCULAR VOLUME; Value: 87.3; Range: 80.0-96.0; Units: fl; Status: F Test: MEAN CORPUSCULAR HEMOGLOBIN; Value: 29.7; Range: 27.0-33.0; Units: pg; Status: F Test: MEAN CORPUSCULAR HGB CONC; Value: 34.0; Range: 32.0-36.5; Units: g/dl; Status: F Test: RED CELL DISTRIBUTION WIDTH; Value: 12.4; Range: 11.5-14.5; Units: %; Status: F Test: PLATELET COUNT, AUTOMATED; Value: 322; Range: 150-450; Units: k/mm3; Status: F Test: NEUTROPHILS %; Value: 66.4; Range: 36.0-66.0; Abnormal: Above high normal; Units: %; Status: F Test: LYMPH %; Value: 24.5; Range: 24.0-44.0; Units: %; Status: F Test: MONO %; Value: 5.7; Range: 0.0-5.0; Abnormal: Above high normal; Units: %; Status: F Test: EOS %; Value: 1.9; Range: 0.0-3.0; Units: %; Status: F Test: BASO %; Value: 0.3; Range: 0.0-1.0; Units: %; Status: F Test: LARGE UNSTAINED CELL %; Value: 1.3; Range: 0.0-4.0; Units: %; Status: F Test: NEUTROPHILS #; Value: 6.3; Range: 1.8-7.7; Units: K/mm3; Status: F Test: LYMPH #; Value: 2.4; Range: 1.5-6.5; Units: K/mm3; Status: F Test: MONO #; Value: 0.5; Range: 0.0-0.8; Units: K/mm3; Status: F Test: EOS #; Value: 0.2; Range: 0.0-0.50; Units: K/mm3; Status: F Test: BASO #; Value: 0.0; Range: 0.0-0.2; Units: K/mm3; Status: F Test: LARGE UNSTAINED CELL #; Value: 0.1; Range: 0.0-0.4; Units: K/mm3; Status: F Lab Order: MED Profile; [facility] 09/28/16 19:35 Test: GLUCOSE, FASTING; Value: 82; Range: 70-105; Units: MG/DL; Status: F Test: BLOOD UREA NITROGEN; Value: 6; Range: 7-18; Abnormal: Below low normal; Units: MG/DL; Status: F Test: CREATININE FOR GFR; Value: 0.66; Range: 0.55-1.02; Units: MG/DL; Status: F Test: GLOMERULAR FILTRATION RATE; Value: > 60.0; Range: >60; Status: F Test: SODIUM LEVEL; Value: 141; Range: 136-145; Units: MEQ/L; Status: F Test: POTASSIUM SERUM; Value: 4.0; Range: 3.5-5.1; Units: MEQ/L; Status: F Test: CHLORIDE LEVEL; Value: 106; Range: 98-107; Units: MEQ/L; Status: F Test: CARBON DIOXIDE LEVEL; Value: 28; Range: 21-32; Units: MEQ/L; Status: F Test: ANION GAP; Value: 7; Range: 8-16; Abnormal: Below low normal; Units: MEQ/L; Status: F Test: CALCIUM LEVEL; Value: 8.6; Range: 8.5-10.1; Units: MG/DL; Status: F Test Note: ; Units are mL/min/1.73 m2 Chronic Kidney Disease Staging per NKF: Stage I & II GFR >=60 Normal to Mildly Decreased Stage III GFR 30-59 Moderately Decreased Stage IV GFR 15-29 Severely Decreased Stage V GFR <15 Very Little GFR Left ESRD GFR <15 on TREASURY ACCOUNTANT Lab Order: Hcg, Serum Quantitative; SPEC09/28/16 19:35 Test: HCG, SERUM QUANTITATIVE; Value: 1899; Units: MIU/ML; Status: F Test Note: ; GESTATIONAL AGE APPROXIMATE HCG RANGE (MIU/ML) 0.2-1 WEEK 5-50 1-2 WEEKS 50-500 2-3 WEEKS 100-5,000 3-4 WEEKS 500-10,000 4-5 WEEKS 1,000-50,000 5-6 WEEKS 10,000-100,000 6-8 WEEKS 15,000-200,000 2-3 MONTHS 10,000-100,000 NON FEMALES LESS THAN 3.0 Patient samples may contain human heterophilic antibodies that could react with immunoassays to give falsely elevated or depressed results. This assay has been designed to minimize interference from heterophilic antibodies. Elevated hCG levels have also been associated with trophoblastic disease and nontrophoblastic neoplasms. The possibility of having these diseases should be considered before a diagnosis of is made. This test is not intended for use as a surrogate marker for aiding in the diagnosis or monitoring the treatment of cancer patients. Siemens Nixa methodology. Lab Order: Type & Screen; 09/28/16 19:35 Test: BLOOD TYPE; Value: O POS; Status: F Test: AB SCREEN (INDIRECT MALDONADO)VIS; Value: NEGATIVE; Status: F Lab Order: UA; 09/28/16 19:35 Test: APPEARANCE, URINE; Value: CLOUDY; Range: CLEAR; Abnormal: Above high normal; Status: F Test: COLOR, URINE; Value: YELLOW; Range: YELLOW; Status: F Test: PH,URINE; Value: 5.0; Range: 5.0-9.0; Units: UNITS; Status: F Test: SPECIFIC GRAVITY URINE AUTO; Value: 1.025; Range: 1.002-1.035; Status: F Test: PROTEIN, URINE AUTO; Value: 2+; Range: NEGATIVE; Abnormal: Above high normal; Units: mg/dL; Status: F Test: GLUCOSE, URINE (UA) AUTO; Value: NEGATIVE; Range: NEGATIVE; Units: mg/dL; Status: F Test: KETONE, URINE AUTO; Value: NEGATIVE; Range: NEGATIVE; Units: mg/dL; Status: F Test: UROBILINOGEN, URINE AUTO; Value: 0.2; Range: 0.0-2.0; Units: mg/dL; Status: F Test: BILIRUBIN, URINE AUTO; Value: NEGATIVE; Range: NEGATIVE; Status: F Test: NITRITE, URINE AUTO; Value: NEGATIVE; Range: NEGATIVE; Status: F Test: LEUKOCYTE ESTERASE, URINE AUTO; Value: 1+; Range: NEGATIVE; Abnormal: Above high normal; Status: F Test: BLOOD, URINE BLOOD; Value: 3+; Range: NEGATIVE; Abnormal: Above high normal; Status: F Test: WBC, URINE AUTO; Value: 26; Range: 0-3; Abnormal: Above high normal; Units: /HPF; Status: F Test: RBC, URINE AUTO; Value: TNTC; Range: 0-3; Abnormal: Above high normal; Units: /HPF; Status: F Test: BACTERIA, URINE AUTO; Value: 1+; Range: NEGATIVE; Abnormal: Above high normal; Status: F Test: SQUAMOUS EPITHELIAL CELL UR AU; Value: 5; Range: 0-6; Units: /HPF; Status: F Test: TRANSITIONAL EPITHELIAL AUTO; Value: <1; Range: NONE; Units: /HPF; Status: F Test: MUCUS, URINE; Value: MODERATE; Range: NEGATIVE; Status: F Test: HYALINE CAST, URINE AUTO; Value: 0; Range: 0-1; Units: /LPF; Status: F Lab Order: Urine Culture; SPEC'M 09/28/16 19:35 Test: URINE CULTURE; Value: <EXTERNAL COMMENT eCWMed> FULL REPORT IN LAB NOTES (eCW and Medent).; Status: F Test: URINE CULTURE; Value: URINE CULTURE RESULT NO GROWTH; Status: F Radiology Order: US 1st trimester Test: US 1st trimester REASON FOR EXAMINATION: Bleeding; Clinical: Early with vaginal bleeding.; ; Comparison: 09/27/2016.; ; Findings:; Retroflexed uterus measures 9.6 x 4.8 x 4.7 cm. An empty and irregularly shaped; gestational sac is now identified within the lower uterine segment with mean sac; diameter of 6.2 mm corresponding to 5 weeks 3 days gestational age. No yolk sac; or pole identified. Maternal ovaries are normal in appearance with 1.5 cm; corpus luteum in the right ovary. No significant pelvic fluid or adnexal mass; lesion.; ; Impression:; Empty gestational sac appears to have migrated into the lower uterine segment; when compared to prior examination. Findings are most suggestive of spontaneous; in progress. However, differential diagnosis would include early; . Correlation with serial HCG levels recommended.; ; ; Signed by; Mu Nina MD 09/29/2016 07:32 A; Outcome: 22:04 Discharge ordered by Provider. ck7 22:21 Discharge Assessment: Patient awake, alert and oriented x 3. No cognitive and/or ko2 functional deficits noted. Patient verbalized understanding of disposition instructions. patient administered narcotics - no. The following High Risk Discharge criteria are identified: None. Discharged to home ambulatory. Condition: stable. Discharge instructions given to patient, Instructed on discharge instructions, follow up and referral plans. medication usage, Demonstrated understanding of instructions, Pt was receptive of discharge instructions/ teaching. Ultrasound Study completed. Property sent home with patient. 22:23 Patient left the ED. ko2 Signatures: Dispatcher Med[employer] EDMS Belle Weathers RN RN km Luisa Villa RN Brenda rBay mcp, JaneRN RN chary Juan Diego Denise, RPA-C RPA-Cck7 Modesta Benítez RN RN ko2 Megha Simmons, Reg Reg ks16 Jere, Jenny De Luna Chart Complete MTDD
--- NOTE | 2016-09-30 23:24 | EDDOCDS ---
Physician Documentation [facility] Name: Radha Davis Age: 20 yrs Sex: Female : 1995 Arrival Date: 09/28/2016 Time: 19:00 Bed I4 / M4 Private MD: Haresh [facility] [place] [place] Disposition: 09/28/16 22:04 Discharged to Home/Self Care. Impression: Spontaneous . - Condition is Stable. - Discharge Instructions: Miscarriage. - Medication Reconciliation, Local Pharmacy Hours form. - Follow up: Jaycob Ahn, OB; When: 1 - 2 days; Reason: Recheck today's complaints, Continuance of care. - Problem is new. - Symptoms are unchanged. - Notes: FOLLOW UP WITH JAYCOB AHN OB ON FRIDAY, RETURN TO THE ER IF THE BLEEDING OR CRAMPING WORSENS, YOU FEEL DIZZY OR SHORT OF BREATH Historical: - Allergies: Amoxicillin (Rash); SULFA (SULFONAMIDES) (Rash); - Home Meds: 1. none - PMHx: none; - PSHx: none; - Social history: Smoking status: Patient states was never smoker of tobacco. No barriers to communication noted, The patient speaks fluent Azeri. - Family history: Not pertinent. - : The pt / caregiver states he / she is not on anticoagulants. Home medication list is obtained from the patient. - Exposure Risk Screening:: None identified. 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 4 in. (162.56 cm) (R); Pain 2/10; 22:11 BP 104 / 64; Pulse 18; Resp 18; Temp 99.9; Pulse Ox 99% ; Pain 3/10; ajs 19:01 Body Mass Index 30.04 (79.38 kg, 162.56 cm) lr2 MDM: 19:20 IV Saline Lock ordered. ck7 19:20 NS 0.9% 1000 ml IV at bolus once ordered. ck7 19:20 Set up pelvic ordered. ck7 19:21 US 1st trimester Ordered. EDMS 19:21 CBC with Diff Ordered. EDMS 19:21 MED Profile Ordered. EDMS 19:21 Hcg, Serum Quantitative Ordered. EDMS 19:21 Type & Screen Ordered. EDMS 19:21 UA Ordered. EDMS 19:21 Urine Culture Ordered. EDMS 19:44 Financial registration complete. ks16 19:49 [facility] Payment Agreement was scanned into Connectipity and attached to record. ks16 20:01 TRANSVAGINAL US Ordered. EDMS 20:39 CBC with Diff Reviewed. ck7 20:39 MED Profile Reviewed. ck7 20:39 UA Reviewed. ck7 20:39 Hcg, Serum Quantitative Reviewed. ck7 20:39 Type & Screen Reviewed. ck7 09/29 08:01 T-Sheet-- Draft Copy was scanned into Connectipity and attached to record. [facility] Administered Medications: 09/28 19:40 Drug: NS 0.9% 1000 ml Route: IV; Rate: bolus; Site: right antecubital; [facility] 22:23 Follow up: IV Status: Completed infusion; IV Intake: 1000ml koJesse Signatures: Dispatcher [employer]Host Luisa Renee, RN Juan Diego Avelar mcp, RPA-C RPA-Cck7 Modesta BenítezRN CLAUDETTE ko2 Megha Simmons, Reg Reg ks16 Jere, Brittney Barajas RN [facility] The chart was reviewed and I authenticate all verbal orders and agree with the evaluation and treatment provided.Attachments: 19:49 [facility] Payment Agreement 09/29 08:01 T-Sheet-- Draft Copy [facility] Chart Complete MTDD
--- NOTE | 2016-09-30 23:24 | EDDOCDS ---
Physician Documentation [facility] Name: Radha Davis Age: 20 yrs Sex: Female : 1995 Arrival Date: 09/28/2016 Time: 19:00 Bed I4 / M4 Private MD: Haresh [facility] [place] Disposition: 09/28/16 22:04 Discharged to Home/Self Care. Impression: Spontaneous . - Condition is Stable. - Discharge Instructions: Miscarriage. - Medication Reconciliation, Local Pharmacy Hours form. - Follow up: Jaycob Ahn, OB; When: 1 - 2 days; Reason: Recheck today's complaints, Continuance of care. - Problem is new. - Symptoms are unchanged. - Notes: FOLLOW UP WITH JAYCOB AHN OB ON FRIDAY, RETURN TO THE ER IF THE BLEEDING OR CRAMPING WORSENS, YOU FEEL DIZZY OR SHORT OF BREATH Historical: - Allergies: Amoxicillin (Rash); SULFA (SULFONAMIDES) (Rash); - Home Meds: 1. none - PMHx: none; - PSHx: none; - Social history: Smoking status: Patient states was never smoker of tobacco. No barriers to communication noted, The patient speaks fluent Greenlandic. - Family history: Not pertinent. - : The pt / caregiver states he / she is not on anticoagulants. Home medication list is obtained from the patient. - Exposure Risk Screening:: None identified. 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 4 in. (162.56 cm) (R); Pain 2/10; 22:11 BP 104 / 64; Pulse 18; Resp 18; Temp 99.9; Pulse Ox 99% ; Pain 3/10; ajs 19:01 Body Mass Index 30.04 (79.38 kg, 162.56 cm) lr2 MDM: 19:20 IV Saline Lock ordered. ck7 19:20 NS 0.9% 1000 ml IV at bolus once ordered. ck7 19:20 Set up pelvic ordered. ck7 19:21 US 1st trimester Ordered. EDMS 19:21 CBC with Diff Ordered. EDMS 19:21 MED Profile Ordered. EDMS 19:21 Hcg, Serum Quantitative Ordered. EDMS 19:21 Type & Screen Ordered. EDMS 19:21 UA Ordered. EDMS 19:21 Urine Culture Ordered. EDMS 19:44 Financial registration complete. ks16 19:49 [facility] Payment Agreement was scanned into B[employer] A Partager and attached to record. ks16 20:01 TRANSVAGINAL US Ordered. EDMS 20:39 CBC with Diff Reviewed. ck7 20:39 MED Profile Reviewed. ck7 20:39 UA Reviewed. ck7 20:39 Hcg, Serum Quantitative Reviewed. ck7 20:39 Type & Screen Reviewed. ck7 09/29 08:01 T-Sheet-- Draft Copy was scanned into [employer]ager and attached to record. [facility] Administered Medications: 09/28 19:40 Drug: NS 0.9% 1000 ml Route: IV; Rate: bolus; Site: right antecubital; [facility] 22:23 Follow up: IV Status: Completed infusion; IV Intake: 1000ml koJesse Signatures: Dispatcher [employer] Luisa Renee, RN Juan Diego Avelar mcp, RPA-C RPA-Cck7 Modesta BenítezRN CLAUDETTE ko2 Megha Simmons, Reg Reg ks16 Jere, Brittney Barajas RN [facility] The chart was reviewed and I authenticate all verbal orders and agree with the evaluation and treatment provided.Attachments: 19:49 [facility] Payment Agreement 09/29 08:01 T-Sheet-- Draft Copy [facility] Chart Complete MTDD
== END 2016-09-28 22:23 | disposition home or self-care (01) ==
LOC: M ED 19:00
DX: O03.9 Complete or unspecified spontaneous abortion without complication (principal); Z88.0 Allergy status to penicillin; Z88.2 Allergy status to sulfonamides